=== PATIENT | female | born 1975 | race Two or more races ===

== ENCOUNTER 2021-09-11 23:46 | Emergency (ER) | payer MEDICAID ==
[~2021-09-11] VITALS: Ht 154.9 cm; Wt 82.7 kg
[2021-09-12] MEDS ORDERED: MAG HYDROX/AL HYDROX/SIMETH 30 ML SUSP UDCUP PO ONE (01:30)
[2021-09-12] MEDS ORDERED: FAMOTIDINE 20 MG TABLET PO ONE (01:30)
[2021-09-12 01:40] LABS: COVID AG,FIA SOURCE NASOPHARYNGEAL
[2021-09-12 02:00] LABS: INFLUENZA TYPE A NEGATIVE FOR TYPE A (NEGATIVE); INFLUENZA TYPE B NEGATIVE FOR TYPE B (NEGATIVE)
[2021-09-12 02:59] VITALS: BP 125/78
== END 2021-09-12 03:00 | disposition home or self-care (01) ==
LOC: EMS 23:47
DX: J02.9 Acute pharyngitis, unspecified (principal); M79.10 Myalgia, unspecified site; R51.9 Headache, unspecified; F41.9 Anxiety disorder, unspecified; Z20.822 Contact with and (suspected) exposure to COVID-19
CPT/HCPCS: 87426; 87804; 99283; U0003